=== PATIENT | male | born 1985 | race Two or more races ===

== ENCOUNTER 2019-11-08 02:21 | Emergency (ER) | payer BC, OTHER ==
[~2019-11-08] VITALS: Ht 172.7 cm; Wt 79.5 kg
[~2019-11-08 02:21] MED LIST: NOCURR
[2019-11-08] MEDS ORDERED: METH20CP12 PO (02:44)
[2019-11-08] MEDS ORDERED: FLUV50 PO (02:44)
[2019-11-08] MEDS ORDERED: BUPR-93 PO (02:44)
[2019-11-08 02:53] VITALS: BP 126/84
== END 2019-11-08 03:40 | disposition home or self-care (01) ==
LOC: EMS 02:24
DX: R00.2 Palpitations (principal); R42 Dizziness and giddiness; T43.635A Adverse effect of methylphenidate, initial encounter; T43.225A Adverse effect of selective serotonin reuptake inhibitors, initial encounter; F32.9 Major depressive disorder, single episode, unspecified; F42.9 Obsessive-compulsive disorder, unspecified; Z79.899 Other long term (current) drug therapy; Z88.8 Allergy status to other drugs, medicaments and biological substances; Y92.89 Other specified places as the place of occurrence of the external cause
CPT/HCPCS: 93005